=== PATIENT | male | born 1945 | race Caucasian/White ===

== ENCOUNTER 2024-08-14 13:45 | Outpatient (RCR) | payer MEDICARE, SELFPAY ==
--- NOTE | 2024-08-15 13:24 | BUOTOPEVAL ---
Assessment and note entered by Gracy Kauffman, OT Evaluation Information Assessment Status Evaluation Diagnosis Numbness of left hand ICD-10 Condition Codes (OT) Pain in left hand M79.642,Generalized muscle weakness M62.81 Onset June 2024 Reported Pain Level Pain Score 3: Self Report Assessment OT Clinical Summary The patient is a 79 year old male who was referred to acute OT due to L hand numbness. 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 The patient requires skilled OT to address these deficits and instruct the patient on adaptive techniques to improve function and decrease pain of L hand. Plan of Care Interventions Therapeutic Exercise,Manual Therapy,Neuro Re- education,Therapeutic Activities,Sensory Integrative Techniques,Self-Care/Home Management, Prosthetic Training,Ultrasound OT Services Indicated Yes Treatment Frequency and 1-2x/week for 10 visits. Duration These treatments will address the objective and functional deficits as defined above. The patient will be advanced safely and appropriately in order for the patient to progress towards his/her prior level of function. Additional exercises will be introduced and as well as a comprehensive home exercise program upon discharge, if needed, ?to ensure carryover of functional gains achieved in the clinic. This treatment plan has been reviewed and agreement upon by the patient.
--- NOTE | 2024-08-15 13:24 | OPREHPOC ---
Outpatient Therapy Plan of Care This is a Multidisciplinary Plan of Care that may contain components documented by all disciplines (PT, OT, and ST.) OT Problem 1 OT Problem #1 Knowledge Deficit OT Goal 1 Goal / Goal Update The patient will demonstrate 100% knowledge and return demonstration of UE HEP to increase strength and avoid tingling. Target Visit 10 OT Problem 2 OT Problem #2 Pain OT Goal 1 Goal / Goal Update The patient will demonstrate <3/10 pain at it's worst in order to avoid further weakness of L hand due to disuse during daily tasks. Target Visit 10 OT Goal 2 Goal / Goal Update The patient will demonstrate decreased sensation issues with reports of mild to no numbness/ tingling during everyday use of L hand. 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 Target Visit 10 OT Goal 2 Goal / Goal Update The patient will demonstrate increased fine motor coordination completing 9-hole peg test in 25 seconds in order to button small buttons on shirts . Target Visit 10
--- NOTE | 2024-09-12 09:50 | OTOPDC ---
Assessment and note entered by Gracy Kauffman, OT Evaluation Information Assessment Status Evaluation Diagnosis Numbness of left hand Onset June 2024 Reported Pain Level Pain Score 0: Self Report Assessment OT Clinical Summary The patient demonstrates good progress toward goals with meeting pondman strength, lateral pinch strength, pain goal, and fine motor coordination which have increased independence with ADLs. The patient continues to demonstrate moderate numbness /tingling in L hand which provides patient with discomfort during daily activities. He demonstrates good progress toward functional goals , due to plateau in sensation and pain goals, therapist educated patient to follow up with orthopedic doctor to determine next steps for address sensation issues. Therapist has educated patient on median nerve glides, theraputty exercises, desensitization activities and stretches to address sensation conservatively to avoid discomfort. The patient is discharged this date due to plateau of sensation and pain goals and meeting strength and coordination goals. He demonstrates understanding of HEP and to follow up with MD. Plan of Care OT Services Indicated No
--- NOTE | 2024-09-12 09:50 | OPREHPOC ---
Outpatient Therapy Plan of Care This is a Multidisciplinary Plan of Care that may contain components documented by all disciplines (PT, OT, and ST.) OT Problem 1 OT Problem #1 Knowledge Deficit OT Goal 1 Goal / Goal Update The patient will demonstrate 100% knowledge and return demonstration of UE HEP to increase strength and avoid tingling. GOAL MET; DISCONTINUE 09/12/2024 Target Visit 10 OT Problem 2 OT Problem #2 Pain OT Goal 1 Goal / Goal Update The patient will demonstrate <3/10 pain at it's worst in order to avoid further weakness of L hand due to disuse during daily tasks. GOAL PARTIALLY MET; DISCONTINUE 09/12/2024 3/10 Target Visit 10 OT Goal 2 Goal / Goal Update The patient will demonstrate decreased sensation issues with reports of mild to no numbness/ tingling during everyday use of L hand. 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 GOAL MET; DISCONTINUE 09/12/2024 L geophysical support specialist 61 lbs R geophysical support specialist 79 lbs L 13 lbs lateral pinch Target Visit 10 OT Goal 2 Goal / Goal Update The patient will demonstrate increased fine motor coordination completing 9-hole peg test in 25 seconds in order to button small buttons on shirts . GOAL MET; DISCONTINUE 09/12/2024 24 seconds Target Visit 10
== END 2024-09-12 20:00 | disposition home or self-care (01) ==
LOC: CHSOT 13:45
DX: R20.0 Anesthesia of skin (principal)
CPT/HCPCS: 97110; 97140; 97165; 97530; 97533